=== PATIENT | male | born 1955 | race African-American/Black ===

== ENCOUNTER 2018-04-13 01:22 | Emergency (ER) | payer OTHER ==
[~2018-04-13] VITALS: Ht 190.5 cm; Wt 80.4 kg
[~2018-04-13 01:22] MED LIST: DIOVAN160 MG PO
[2018-04-13] MEDS ORDERED: NORVASC5 MG PO (01:33)
[2018-04-13] MEDS ORDERED: NEURONTIN 300300 M1 PO (01:33)
[2018-04-13] MEDS ORDERED: NAPROSYN500 MG PO (02:50)
[2018-04-13] MEDS ORDERED: MEDROL DOSPAK21 TA1 PO (02:50)
[2018-04-13] MEDS ORDERED: SENNA-DOCUSATE1 EACH PO (02:50)
[2018-04-13] MEDS ORDERED: NORCO 5-325 TA1 EACH PO (02:50)
[2018-04-13 03:09] VITALS: BP 146/91
== END 2018-04-13 04:19 | disposition home or self-care (01) ==
LOC: ER 01:22
DX: M54.30 Sciatica, unspecified side (principal); R11.2 Nausea with vomiting, unspecified; R10.9 Unspecified abdominal pain; I10 Essential (primary) hypertension

== ENCOUNTER 2020-04-27 03:42 | Emergency (ER) | payer OTHER ==
[~2020-04-27] VITALS: Ht 188 cm; Wt 68.0 kg
[~2020-04-27 03:42] MED LIST changes: +MEDROL DOSPAK21 TA1 PO; +NAPROSYN500 MG PO; +NEURONTIN 300300 M1 PO; +NORCO 5-325 TA1 EACH PO; +NORVASC5 MG PO; +SENNA-DOCUSATE1 EACH PO
[2020-04-27 04:59] LABS: ABSOLUTE NEUTROPHILS 3.6 thou/uL (1.4-8.2); BASOPHILS 0.7 % (0.0-2.0); EOSINOPHILS 0.1 % (0.0-3.0); HEMATOCRIT 43.7 % (42.0-52.0); HEMOGLOBIN 14.8 gm/dL (14.0-18.0); LYMPHOCYTES 19.2 % (24.0-44.0); MCH 29.5 pg (26.0-34.0); MCHC 33.8 g/dL (28.0-37.0); MCV 87.2 fL (80.0-100.0); MONOCYTES 7.5 % (1.0-8.0); PLATELET COUNT 194 thou/uL (150-400); POLYS 72.5 % (36.0-66.0); RBC 5.01 mil/uL (4.50-6.00); RDW 13.4 % (10.5-14.5); WBC 4.9 thou/uL (4.0-11.0)
[2020-04-27 05:02] LABS: ANION GAP 5 mmol/L (7-16); BUN 18 mg/dL (7-18); CALCIUM 8.4 mg/dL (8.5-10.1); CHLORIDE 97 mmol/L (98-107); CO2 27 mmol/L (21-32); CREATININE 1.3 mg/dL (0.7-1.3); GLUCOSE 100 mg/dL (74-106); POTASSIUM 4.5 mmol/L (3.5-5.1); SODIUM 129 mmol/L (136-145)
[2020-04-27 05:12] LABS: MAGNESIUM 2.5 mg/dL (1.8-2.4); SGOT 29 U/L (15-37); SGPT 28 U/L (30-65); TOTAL BILIRUBIN 1.1 mg/dL (0.2-1.0); TOTAL PROTEIN 7.4 g/dL (6.4-8.2); TROPONIN-I <0.06 ng/mL (<0.06)
[2020-04-27 06:17] LABS: URINE BILIRUBIN NEGATIVE (Negative); URINE BLOOD NEGATIVE (Negative); URINE CLARITY CLEAR; URINE COLOR YELLOW; URINE GLUCOSE-RANDOM* NEGATIVE (Negative); URINE KETONES TRACE (Negative); URINE LEUKOCYTES-REFLEX NEGATIVE (Negative); URINE NITRITE-REFLEX NEGATIVE (Negative); URINE PROTEIN (DIPSTICK) 1+ (Negative); URINE SPECIFIC GRAVITY 1.025 (1.005-1.035)
[2020-04-27 06:36] LABS: BACTERIA-REFLEX None Seen /HPF (None Seen); CASTS None Seen /LPF (None Seen); CRYSTALS None Seen /LPF (None Seen); MUCUS 0-3 Light strn/LPF (None Seen); SQUAMOUS None Seen /LPF (0-3); URINE RBC 0-2 Rare /HPF (0-2); URINE WBC-REFLEX 0-5 Rare /HPF (0-5)
[2020-04-27 10:42] VITALS: BP 131/76
--- NOTE | 2020-04-28 08:03 | EKG ---
[facility] [place] [address] ELECTROCARDIOGRAM REPORT Name: VIANNEY KAPLAN Room #: [facility]P [facility] [id number] Admission: 04/27/20 Attend Phys: Discharge: 04/27/20 Date of : 51 Report #: [id number] THIS REPORT FOR: cc: Nella Lei Diane C. DO Lundgren, Craig H. MD [facility] ~ THIS REPORT FOR: //name// [facility] ED Test Date: 2020-04-27 Test Time: 04:27:11 Pat Name: VIANNEY KAPLAN Department: Room: Gender: Corporate Operations Compliance Manager: humberto suarez : 1955 Requested By: Goyo Stratton Order Number: [id number] MD: Sourav May Measurements Intervals Fisher Rate: 64 P: 28 RI: 192 QRS: -23 QRSD: 86 T: 20 QT: 406 QTc: 419 Interpretive Statements Sinus rhythm Poor R wave progression No previous ECG available for comparison Electronically Signed On 04-28-2020 8:03:28 CDT by Sourav May [email or web address] <ELECTRONICALLY SIGNED> By: Sourav May MD, [facility] 04/28/20 0803 [id number] 6 Sourav May MD, [facility] /EPI
== END 2020-04-27 10:55 | disposition home or self-care (01) ==
LOC: ER 03:42
PROVIDERS: Emergency Medicine
DX: R53.83 Other fatigue (principal); I10 Essential (primary) hypertension; Z79.899 Other long term (current) drug therapy